=== PATIENT | female | born 1945 | race American Indian/Alaskan Native ===

== ENCOUNTER 2016-07-23 02:50 | Inpatient (IN) | payer MEDICARE ==
--- NOTE | 2016-07-23 03:53 | Emergency Department Report ---
ED General Adult HPI - General Chief complaint: Dyspnea/Respdistress Stated complaint: BLANK Time Seen by Provider: 07/23/16 03:48 Source: patient, EMS (ems notes not available at time of chart dictation), RN notes reviewed Mode of arrival: Stretcher Limitations: Physical Limitation - History of Present Illness Initial comments: Primary care Dr.: Dr. Sheridan This is a 70-year-old female. She is previously known to me. She presents to the ER complaining of feeling like she has pneumonia. She complains of cough, shortness of breath, chest tightness, wheezing, general malaise. This is being going on for the past 24 hours. Positive recent trip to [place]. There is no hematemesis. There is no leg pain. There is no leg swelling. No bright red blood per rectum. -: Gradual Location: chest Severity scale (0 -10): 4 Quality: aching Consistency: intermittent Improves with: rest Worsens with: movement Associated Symptoms: chest pain, cough, loss of appetite, malaise, shortness of breath, weakness. denies: confusion, fever/chills - Related Data Allergies Allergy/AdvReac Type Severity Reaction Status Date / Time azithromycin Allergy Swelling Verified 07/23/16 05:23 Penicillins Allergy Nausea Verified 07/23/16 05:23 lisinopril AdvReac Angioedema Verified 07/23/16 05:23 ED Review of Systems ROS: Stated complaint: BLANK Other details as noted in HPI Constitutional: malaise, weakness Eyes: denies: vision change Respiratory: cough, shortness of breath Cardiovascular: chest pain, dyspnea on exertion Gastrointestinal: denies: abdominal pain Genitourinary: as per HPI Musculoskeletal: arthralgia, myalgia Skin: denies: lesions Neurological: weakness ED Past Medical Hx - Past Medical History Previous Medical History?: Yes Hx Hypertension: Yes Hx Asthma: Yes Hx COPD: Yes - Surgical History Past Surgical History?: Yes Additional Surgical History: OVARIECTOMY. HYSTERECTOMY. LAMINECTOMY - Social History Smoking Status: Former Smoker Substance Use Type: None ED Physical Exam - General Limitations: Physical Limitation General appearance: alert, in distress - Head Head exam: Present: atraumatic, normocephalic - Eye Eye exam: Present: normal appearance, EOMI. Absent: nystagmus - ENT ENT exam: Present: normal exam, normal orophraynx, mucous membranes moist - Neck Neck exam: Present: normal inspection, full ROM. Absent: tenderness, meningismus - Respiratory Respiratory exam: Present: respiratory distress, wheezes, rhonchi - Cardiovascular Cardiovascular Exam: Present: regular rate, normal rhythm, normal heart sounds. Absent: bradycardia, tachycardia, irregular rhythm, systolic murmur, diastolic murmur, rubs, gallop - GI/Abdominal GI/Abdominal exam: Present: soft, normal bowel sounds. Absent: distended, tenderness, guarding, rebound, rigid, pulsatile mass - Extremities Exam Extremities exam: Present: normal inspection, full ROM, normal capillary refill. Absent: tenderness, pedal edema, joint swelling, calf tenderness - Back Exam Back exam: Present: normal inspection, full ROM. Absent: tenderness, CVA tenderness (R), CVA tenderness (L), muscle spasm, paraspinal tenderness, vertebral tenderness - Neurological Exam Neurological exam: Present: alert, oriented X3, normal gait, other (Extraocular movements intact. Tongue midline. No facial droop. Facial sensation intact to light touch in the V1, V2, V3 distribution bilaterally. 5 and 5 strength in 4 extremities.. Sensation is intact to light touch in 4 extremities.). Absent : motor sensory deficit - Psychiatric Psychiatric exam: Present: normal affect, normal mood - Skin Skin exam: Present: warm, dry, intact, normal color. Absent: rash ED Course Vital Signs 07/23/16 07/23/16 07/23/16 03:25 03:31 05:34 Temperature 98.4 F 98.4 F Pulse Rate 91 H 91 H Pulse Rate [ 95 H Anterior] Respiratory 21 21 Rate Respiratory 24 Rate [Anterior] Blood Pressure 152/84 Blood Pressure 152/84 [Right] O2 Sat by Pulse 90 90 Oximetry - Reevaluation(s) Reevaluation #1: 07/23/16 05:45 differential diagnosis: Bronchitis, asthma, reactive airway disease, acute coronary syndrome, congestive heart failure, pulmonary embolus 07/23/16 05Assessment and plan: 70-year-old female with cough, wheezing, shortness of breath, hypoxemic respiratory failure with a PaO2 of 63 on room air , chest x-ray appears to be clear, laboratory studies are unremarkable, most likely pneumonia versus bronchitis. Negative troponin, EKG abnormal, no prior for comparison, CT scan of the chest is pending. Case is presented to the Hospital physician, Dr. Nelson, who accepts the patient to the medical service. Inpatient team will follow-up on CT scan of the chest. :45 Reevaluation #2: 07/23/16 06:27 unable to obtain 20 g iv vq ordered cta cancelled ED Medical Decision Making - Lab Data Result diagrams: 07/23/16 03:48 07/23/16 03:48 Vital Signs 07/23/16 07/23/16 07/23/16 03:25 03:31 05:34 Temperature 98.4 F 98.4 F Pulse Rate 91 H 91 H Pulse Rate [ 95 H Anterior] Respiratory 21 21 Rate Respiratory 24 Rate [Anterior] Blood Pressure 152/84 Blood Pressure 152/84 [Right] O2 Sat by Pulse 90 90 Oximetry Labs 07/23/16 07/23/16 07/23/16 03:48 03:48 03:48 WBC 6.9 RBC 4.52 Hgb 13.9 Hct 42.1 MCV 93 MCH 31 MCHC 33 RDW 14.2 Plt Count 169 Lymph % (Auto) 28.6 [place] % (Auto) 6.2 Eos % (Auto) 4.4 H Baso % (Auto) 0.3 Lymph # 2.0 [place] # 0.4 Eos # 0.3 Baso # 0.0 Seg Neutrophils % 60.5 Seg Neutrophils # 4.1 PT INR D-Dimer POC ABG pH POC ABG pCO2 POC ABG pO2 POC ABG HCO3 POC ABG Total CO2 POC ABG O2 Sat POC ABG Base Excess FiO2 Sodium 141 Potassium 3.6 Chloride 100.2 Carbon Dioxide 29 Anion Gap 15 BUN 12 Creatinine 0.7 Estimated GFR > 60 BUN/Creatinine Ratio 17.14 Glucose 120 H Lactic Acid Calcium 9.3 Total Bilirubin 0.70 AST 21 ALT 15 Alkaline Phosphatase 112 Troponin T < 0.010 Total Protein 7.7 Albumin 4.1 Albumin/Globulin Ratio 1.1 07/23/16 07/23/16 07/23/16 03:59 03:59 04:26 WBC RBC Hgb Hct MCV MCH MCHC RDW Plt Count Lymph % (Auto) [place] % (Auto) Eos % (Auto) Baso % (Auto) Lymph # [place] # Eos # Baso # Seg Neutrophils % Seg Neutrophils # PT 12.2 INR 0.91 D-Dimer 396.07 H POC ABG pH POC ABG pCO2 POC ABG pO2 POC ABG HCO3 POC ABG Total CO2 POC ABG O2 Sat POC ABG Base Excess FiO2 Sodium Potassium Chloride Carbon Dioxide Anion Gap BUN Creatinine Estimated GFR BUN/Creatinine Ratio Glucose Lactic Acid 1.40 Calcium Total Bilirubin AST ALT Alkaline Phosphatase Troponin T Total Protein Albumin Albumin/Globulin Ratio 07/23/16 04:41 WBC RBC Hgb Hct MCV MCH MCHC RDW Plt Count Lymph % (Auto) [place] % (Auto) Eos % (Auto) Baso % (Auto) Lymph # [place] # Eos # Baso # Seg Neutrophils % Seg Neutrophils # PT INR D-Dimer POC ABG pH 7.415 POC ABG pCO2 44.0 POC ABG pO2 63 L POC ABG HCO3 28.2 POC ABG Total CO2 30 POC ABG O2 Sat 92 POC ABG Base Excess 4 FiO2 21 Sodium Potassium Chloride Carbon Dioxide Anion Gap BUN Creatinine Estimated GFR BUN/Creatinine Ratio Glucose Lactic Acid Calcium Total Bilirubin AST ALT Alkaline Phosphatase Troponin T Total Protein Albumin Albumin/Globulin Ratio - EKG Data -: EKG Interpreted by Me EKG shows normal: sinus rhythm - EKG Data When compared to previous EKG there are: previous EKG unavailable 07/23/16 05:46 Normal sinus, 75 bpm, borderline left axis deviation, right bundle branch block , abnormal EKG, not consistent with STEMI, no prior for comparison. - Radiology Data Radiology results: image reviewed interpreted by me: The aorta is uncoiled. Chest x-ray otherwise negative for acute disease. Critical care attestation.: If time is entered above; I have spent that time in minutes in the direct care of this critically ill patient, excluding procedure time. ED Disposition Clinical Impression: Respiratory failure Disposition: OP ADMITTED IP TO THIS HOSP Is pt being admited?: Yes Does the pt Need Aspirin: Yes Condition: Stable Referrals: PRIMARY CARE, [Primary Care Provider] - 3-5 Days
[2016-07-23 04:09] LABS: Basophils % (Auto) 0.3 % (0.0-1.8); Eosinophils % (Auto) 4.4 % (0.0-4.3); Hematocrit 42.1 % (30.3-42.9); Hemoglobin 13.9 gm/dl (10.1-14.3); Mean Corpuscular HGB Conc 33 % (30-34); Mean Corpuscular Hemoglobin 31 pg (28-32); Mean Corpuscular Volume 93 fl (79-97); Platelet Count 169 K/mm3 (140-440); Red Blood Count 4.52 M/mm3 (3.65-5.03); Red Cell Distribution Width 14.2 % (13.2-15.2); White Blood Count 6.9 K/mm3 (4.5-11.0)
[2016-07-23] MEDS ORDERED: ATROVENT IH ONE (04:18)
[2016-07-23] MEDS ORDERED: PROVENTIL IH ONE (04:18)
[2016-07-23] MEDS ORDERED: MAGNESIUM SULFATE 2GM/50ML 2 GM/50 ML BAG IV ONE (04:19)
[2016-07-23 04:26] LABS: INR 0.91 (0.87-1.13)
[2016-07-23 04:34] LABS: Alanine Aminotransferase 15 units/L (7-56); Albumin 4.1 g/dL (3.9-5); Albumin/Globulin Ratio 1.1 %; Alkaline Phosphatase 112 units/L (35-129); Anion Gap 15 mmol/L; BUN/Creatinine Ratio 17.14; Blood Urea Nitrogen 12 mg/dL (7-17); Calcium 9.3 mg/dL (8.4-10.2); Carbon Dioxide 29 mmol/L (22-30); Chloride 100.2 mmol/L (98-107); Glucose 120 mg/dL (65-100); Potassium 3.6 mmol/L (3.6-5.0); Sodium 141 mmol/L (137-145); Total Protein 7.7 g/dL (6.3-8.2)
[2016-07-23 04:50] LABS: ISTAT Base Excess 4; ISTAT HCO3 28.2; ISTAT PH 7.415 (7.35-7.45); ISTAT PO2 63 (80-105); ISTAT SO2 92; ISTAT TCO2 30
[2016-07-23] MEDS ORDERED: NACL ONE (05:17)
[2016-07-23] MEDS ORDERED: LEVAQUIN 750MG/150ML 750 MG/150 ML BAG IV ONE (05:45)
[2016-07-23] MEDS ORDERED: BABY ASPIRIN PO ONE (05:49)
[2016-07-23] MEDS ORDERED: LOVENOX SUB-Q ONE ×2 (06:47→10:00)
--- NOTE | 2016-07-23 07:38 | History and Physical Report ---
History of Present Illness Date of examination: 07/23/16 History of present illness: Patient is a 70-year-old female. She presents to the ER complaining of feeling like she has pneumonia. She complains of cough, shortness of breath, chest tightness, wheezing, general malaise. This is being going on for the past 24 hours. Positive recent trip to [place]. There is no hematemesis. There is no leg pain. There is no leg swelling. No bright red blood per rectum. Past History Past Medical History: COPD Medications and Allergies Allergies Allergy/AdvReac Type Severity Reaction Status Date / Time azithromycin Allergy Swelling Verified 07/23/16 05:23 Penicillins Allergy Nausea Verified 07/23/16 05:23 lisinopril AdvReac Angioedema Verified 07/23/16 05:23 Active Meds: Active Medications Enoxaparin Sodium (Lovenox) 70 mg SUB-Q ONCE.ED ONE Stop: 07/23/16 10:01 Review of Systems Cardiovascular: chest pain Respiratory: shortness of breath Exam - Constitutional Vitals: Temp Pulse Resp BP Pulse Ox 98.4 F 95 H 24 152/84 90 07/23/16 03:31 07/23/16 05:34 07/23/16 05:34 07/23/16 03:31 07/23/16 03:31 General appearance: Present: mild distress - EENT Eyes: Present: PERRL, EOM intact ENT: hearing intact, clear oral mucosa - Neck Neck: Present: supple, normal ROM - Respiratory Respiratory effort: normal Respiratory: bilateral: wheezing - Cardiovascular Rhythm: regular Heart Sounds: Present: S1 & S2 - Extremities Extremities: no ischemia, No edema - Abdominal General gastrointestinal: Present: soft, non-tender, non-distended, normal bowel sounds - Psychiatric Psychiatric: appropriate mood/affect, intact judgment & insight - Neurologic Neurologic: CNII-XII intact, moves all extremities Results - Labs CBC & Chem 7: 07/23/16 03:48 07/23/16 03:48 Labs: Laboratory Last Values WBC 6.9 K/mm3 (4.5-11.0) 07/23/16 03:48 RBC 4.52 M/mm3 (3.65-5.03) 07/23/16 03:48 Hgb 13.9 gm/dl (10.1-14.3) 07/23/16 03:48 Hct 42.1 % (30.3-42.9) 07/23/16 03:48 MCV 93 fl (79-97) 07/23/16 03:48 MCH 31 pg (28-32) 07/23/16 03:48 MCHC 33 % (30-34) 07/23/16 03:48 RDW 14.2 % (13.2-15.2) 07/23/16 03:48 Plt Count 169 K/mm3 (140-440) 07/23/16 03:48 Lymph % (Auto) 28.6 % (13.4-35.0) 07/23/16 03:48 [place] % (Auto) 6.2 % (0.0-7.3) 07/23/16 03:48 Eos % (Auto) 4.4 % (0.0-4.3) H 07/23/16 03:48 Baso % (Auto) 0.3 % (0.0-1.8) 07/23/16 03:48 Lymph # 2.0 K/mm3 (1.2-5.4) 07/23/16 03:48 [place] # 0.4 K/mm3 (0.0-0.8) 07/23/16 03:48 Eos # 0.3 K/mm3 (0.0-0.4) 07/23/16 03:48 Baso # 0.0 K/mm3 (0.0-0.1) 07/23/16 03:48 Seg Neutrophils % 60.5 % (40.0-70.0) 07/23/16 03:48 Seg Neutrophils # 4.1 K/mm3 (1.8-7.7) 07/23/16 03:48 PT 12.2 Sec. (12.2-14.9) 07/23/16 03:59 INR 0.91 (0.87-1.13) 07/23/16 03:59 D-Dimer 396.07 ng/mlDDU (0-234) H 07/23/16 04:26 POC ABG pH 7.415 (7.35-7.45) 07/23/16 04:41 POC ABG pCO2 44.0 (35-45) 07/23/16 04:41 POC ABG pO2 63 (80-105) L 07/23/16 04:41 POC ABG HCO3 28.2 07/23/16 04:41 POC ABG Total CO2 30 07/23/16 04:41 POC ABG O2 Sat 92 07/23/16 04:41 POC ABG Base Excess 4 07/23/16 04:41 FiO2 21 % 07/23/16 04:41 Sodium 141 mmol/L (137-145) 07/23/16 03:48 Potassium 3.6 mmol/L (3.6-5.0) 07/23/16 03:48 Chloride 100.2 mmol/L (98-107) 07/23/16 03:48 Carbon Dioxide 29 mmol/L (22-30) 07/23/16 03:48 Anion Gap 15 mmol/L 07/23/16 03:48 BUN 12 mg/dL (7-17) 07/23/16 03:48 Creatinine 0.7 mg/dL (0.7-1.2) 07/23/16 03:48 Estimated GFR > 60 ml/min 07/23/16 03:48 BUN/Creatinine Ratio 17.14 % 07/23/16 03:48 Glucose 120 mg/dL (65-100) H 07/23/16 03:48 Lactic Acid 1.40 mmol/L (0.7-2.0) 07/23/16 03:59 Calcium 9.3 mg/dL (8.4-10.2) 07/23/16 03:48 Total Bilirubin 0.70 mg/dL (0.1-1.2) 07/23/16 03:48 AST 21 units/L (5-40) 07/23/16 03:48 ALT 15 units/L (7-56) 07/23/16 03:48 Alkaline Phosphatase 112 units/L (35-129) 07/23/16 03:48 Troponin T < 0.010 ng/mL (0.00-0.029) 07/23/16 03:48 Total Protein 7.7 g/dL (6.3-8.2) 07/23/16 03:48 Albumin 4.1 g/dL (3.9-5) 07/23/16 03:48 Albumin/Globulin Ratio 1.1 % 07/23/16 03:48 Assessment and Plan - Patient Problems (1) Chest pain Current Visit: Yes Status: Acute Qualifiers: Chest pain type: C Ischemic chest pain type: I Plan to address problem: Admit to Tele, Cardiology consult, ASA, No beta-blockers secondary to COPD, 2D echo, Lexiscan (2) Elevated d-dimer Current Visit: Yes Status: Acute Plan to address problem: V/Q Scan to evaluate for PE (3) COPD (chronic obstructive pulmonary disease) Current Visit: Yes Status: Acute Qualifiers: COPD type: C Chronic bronchitis type: C Emphysema type: E Plan to address problem: Nebulizer treatments, O2, Pulmonary consult, IV steroids
[2016-07-23 08:08] LABS: Bilirubin,Urine NEG (Negative); Blood,Urine NEG (Negative); Ketones,Urine NEG (Negative); Leukocyte Esterase,Urine NEG (Negative); Mucus,Urine FEW /HPF; Nitrite,Urine NEG (Negative); Protein,Urine <15 mg/dL mg/dL (Negative); Urobilinogen,Urine < 2.0 mg/dL (<2.0)
--- NOTE | 2016-07-23 09:07 | XRay Report ---
ROUTINE CHEST, TWO VIEWS: HISTORY: Dyspnea. The trachea, heart, lung kim and bony thorax are unremarkable. The aorta is mildly ectatic but well-defined. IMPRESSION: Unremarkable chest x-ray.
[2016-07-23] MEDS ORDERED: PNEUMOVAX 23 IM ONE (09:32)
[2016-07-23] MEDS ORDERED: ECOTRIN PO ONE (10:00)
[2016-07-23] MEDS: PROVENTIL IH SCH ×3 (10:36→20:37)
--- NOTE | 2016-07-23 10:53 | Consultation ---
History of Present Illness Consult date: 07/23/16 Consult reason: shortness of breath History of present illness: Patient is a 70-year-old female. She presented to the ER complaining of feeling like she has pneumonia. Patient states she has had a cough, shortness of breath, chest tightness, wheezing, general malaise. Chest tightness is substernal without radiation. Chest pain is present off and on for the last several years. Patient denies orthopnea, pnd, palpitations, dizziness or sycnope. Past History Past Medical History: COPD, hypertension, hypothyroidism Past Surgical History: Other (OVARIECTOMY. HYSTERECTOMY. LAMINECTOMY) Social history: smoking, other (Patient is a former smoker). denies: alcohol abuse, IV drug use Medications and Allergies Allergies Allergy/AdvReac Type Severity Reaction Status Date / Time azithromycin Allergy Swelling Verified 07/23/16 05:23 Penicillins Allergy Nausea Verified 07/23/16 05:23 lisinopril AdvReac Angioedema Verified 07/23/16 05:23 Home Medications Medication Instructions Recorded Confirmed Last Taken Type ALBUTEROL Inhaler [Proair] 2 puff IH QID PRN 07/23/16 07/23/16 Unknown History Fluticasone [Flonase] 1 spray NS QDAY 07/23/16 07/23/16 Unknown History Hydrochlorothiazide [HCTZ] 25 mg PO QDAY 07/23/16 07/23/16 Unknown History Levothyroxine [Synthroid] 100 mcg PO QAM 07/23/16 07/23/16 Unknown History Potassium Chloride [Klor-Con] 20 meq PO DAILY 07/23/16 07/23/16 Unknown History guaiFENesin [Mucinex] 600 mg PO BID 07/23/16 07/23/16 Unknown History Active Meds: Active Medications Albuterol (Proventil) 2.5 mg IH Q6HRT ACACIA Last Admin: 07/23/16 10:36 Dose: Not Given Levofloxacin/Dextrose (Levaquin 750mg/150ml) 750 mg in 150 mls @ 100 mls/hr IV Q24HR ACACIA PRN Reason: Protocol Sodium Chloride (Nacl 0.9% 1000 Ml) 1,000 mls @ 100 mls/hr IV DIRECT ACACIA Ipratropium [place] (Atrovent) 0.5 mg IH Q6HRT ACACIA Methylprednisolone Sodium Succinate (Solu-Medrol) 80 mg IV Q8HR ACACIA Review of Systems All systems: negative (those complaints mentioned in HPI) Physical Examination Vital Signs Pulse Ox 95 07/23/16 03:09 General appearance: no acute distress HEENT: Positive: EOMI Neck: Positive: neck supple Cardiac: Positive: Reg Rate and Rhythm, S1/S2 Lungs: Positive: Other (Course breath sounds bilaterally) Neuro: Positive: Grossly Intact Abdomen: Positive: Soft, Active Bowel Sounds Extremities: Present: normal Results 07/23/16 03:48 07/23/16 03:48 Assessment and Plan (1) Chest pain - admitted to telemetry. Continue ASA. Start statin. No BB due to history of COPD. Continue to follow troponins. If troponins remain negative the plan for lexiscan in AM. Echo pending (2) Elevated d-dimer - planned for V/Q Scan to evaluate for PE (3) COPD (chronic obstructive pulmonary disease) - Nebulizer treatments, O2, Pulmonary consult, IV steroids. Management per primary (4) History of smoking
--- NOTE | 2016-07-23 10:59 | Nuclear Medicine Report ---
LUNG SCAN, VENTILATION AND PERFUSION: History: Chest pain, shortness of breath. Technique: 5mci of Tc99m MAA was infused for the perfusion images. 15mci XE 133 gas was inhaled for the ventilatory images. Correlation is made with a chest x-ray dated 07/23/16. Findings: Inhalation of Xenon gas demonstrates a normal distribution of the activity throughout both lungs. The wash out phases show mild retention of the radiotracer bilaterally suggesting COPD. After injection of Technetium 99m macroaggregated albumin gamma camera imaging of the lungs in multiple projections demonstrates normal pulmonary contours with a homogeneous distribution of activity. No focal areas of perfusion deficiency are identified. IMPRESSION: Low probability for pulmonary embolus. Findings suggestive of mild COPD.
--- NOTE | 2016-07-23 11:18 | Admit Criteria Form ---
Admission Criteria Documentation: CARDIOLOGY GRG Clinical Indications for Admission to Inpatient Care ( Place 'X' for any and all applicable criteria): Hospital admission is needed for appropriate care of the patient because of ANY ONE of the following (1): [ ] I. Hemodynamic instability as indicated by ALL of the following (1)(2)(3) (4)(5) [ ]a) Vital signs or other findings not as expected for chronic patient condition or baseline [ ]b) Instability indicated by ANY ONE of the following: [ ]i) Hypotension [ ]ii) Symptomatic Tachycardia unresponsive to treatment ( e.g., analgesia, fluids, sedation as indicated) [ ]iii) Inadequate perfusion indicated by ANY ONE of the following: [ ] 1) Lactic acidosis (> 2 mmol/L) [ ] 2) New abnormal capillary refill (> 3 seconds) [ ] 3) Reduced urine output [ ] 4) New altered mental status [ ]iv) Orthostatic vital sign changes unresponsive to treatment (e.g., fluids) [ ]v) IV inotropic or vasopressor medication required to maintain adequate blood pressure or perfusion [ ] II. Severe heart failure as indicated by ANY ONE of the following(17)(18) [ ]a) Respiratory distress [ ]b) Hypotension [ ]c) Anasarca (refractory to outpatient therapy) [ ]d) Cardiac arrhythmias of immediate concern [ ]e) Myocardial ischemia [ ] III. Cardiac arrhythmias or findings of immediate concern indicated by ANY ONE of the following (19)(20): [ ] a) Heart rhythms that are inherently dangerous or unstable indicated by ANY ONE of the following (21)(22)(23): [ ] i) Resuscitated ventricular fibrillation or cardiac arrest [ ] ii) Ventricular escape rhythm [ ] iii) Sustained ventricular tachycardia (30 seconds or more of ventricular rhythm at greater than 100 beats per minute) [ ] iv) Nonsustained ventricular tachycardia and ANY ONE of the following: [ ] 1) Suspected cardiac ischemia as cause or consequence of ventricular tachycardia [ ] 2) In setting of acute myocarditis [ ] b) Unstable cardiac conduction defects indicated by ANY ONE of the following(23)(24)(25) [ ] i) Type II second-degree atrioventricular block [ ]ii) Third-degree atrioventricular block [ ]iii) New-onset left bundle branch block with suspected myocardial ischemia [ ]c) Any heart rhythm and ANY ONE of the following (21)(22)(26)(27) (28) [ ] i) Continuous long-term ECG monitoring needed (e.g., initiation of drug requiring monitoring for more than 24 hours) [ ] ii) Patient has automatic implanted cardioverter defibrillator that is repeatedly firing, malfunctioning, or in need of immediate adjustment of settings beyond the scope of ambulatory or observation care [ ]d) Heart rhythms of concern due to ANY ONE of the following: [ ] i) Hypotension [ ] ii) Respiratory distress [ ] iii) Association with other significant symptoms (e.g., bradycardia with syncope or ongoing dizziness, supraventricular tachycardia with chest pain (14)(15)(17) [ ] IV. Monitoring for cardiac contusion beyond the scope of observation care needed [A](30)(31)(32) [ ] V. Surgical or device complication (e.g., valve replacement complication , pacemaker dysfunction) (35)(41)(44)(45)(46) [ ] . Inpatient palliative care needed. [B](49) Also use Inpatient Palliative Care Criteria [ ] VII. Nonbacterial thrombotic (marantic) endocarditis (36)(43)(47)(48) [X ] VIII. Cardiology condition, symptom, or finding for which emergency and observation care has failed or are not considered appropriate. [ ] IX. Acute valvular disease requiring inpatient as indicated by ANY ONE of the following (41) [ ]a) Acute valvular regurgitation (42) [ ]b) Noninfectious valvulitis (43) [ ]c) Obstructive valve thrombosis [ ]d) Paravalvular leak [ ]e) Other significant valvular disorder remaining after emergency or observation level of care (as appropriate) [ ]X. Pericardial disease requiring inpatient treatment as indicated by ANY ONE of the following (33)(34)(35)(36)(37) [ ]a) Suspected tamponade (38)(39)(40) [ ]b) Hemopericardium [ ]c) Other significant pericardial disorder remaining after emergency or observation level of care (as appropriate) [ ] XI. Cardiac ischemia beyond scope of emergency and observation care. [ ] XII. Hypertension requiring inpatient treatment as indicated by ANY ONE of the following (6)(7)(8) [ ]a) SBP greater than 220 mm Hg or DBP greater than 120 mmHg despite treatment [ ]b) SBP greater than 140 mm Hg or DBP greater than 100 mm Hg with evidence of acute end organ damage as indicated by ANY ONE of the following [ ] i) Altered mental status [ ] ii) Acute renal failure as indicated by new onset of ANY ONE of the following (9)(10)(11)(12)(13) [ ]1) 3-fold rise in serum creatinine from baseline [ ]2) Serum creatinine greater than 4 mg/dL ( 354 micromoles/L) with acute rise greater than 0.5 mg/dL (44.2 micromoles/L) [ ]3) Reduction of more than 75% in estimated glomerular filtration rate from baseline [ ]4) Estimated glomerular filtration rate less than 35 mL/min/1.73m2 (0.59 mL/sec/1.73m2) in child up to 18 years of age [ ]5) Cessation of urine output indicated by ALL of the following [ ]A. Adequate volume status [ ]B. Inadequate urine output as indicated by ANY ONE of the following [ ]a. Urine output less than 0.3 mL/kg/hr for 24 hours [ ]b. Anuria (urine output less than 0.1 mL/kg/hr) for 12 hours [ ] iii) Aortic dissection [ ] iv) Myocardial Ischemia [ ] v) Left ventricular heart failure [ ]vi) Retinal Hemorrhage [ ]vii) Other significant finding [ ]c) Hypertension in child requiring inpatient treatment as indicated by ALL of the following(14)(15)(16) [ ] i) Outpatient treatment not effective, not available, or not appropriate [ ]ii) SBP or DBP greater than 95th percentile for age [ ]iii) Evidence of acute end organ damage as indicated by ANY ONE of the following [ ]1) Altered mental status [ ]2) Acute renal failure as indicated by new onset of ANY ONE of the following(9)(10)(11)(12)(13) [ ]A. 3-fold rise in serum creatinine from baseline [ ]B. Serum creatinine greater than 4 mg/dL (354 micromoles/L) with acute rise greater than 0.5 mg/dL (44.2 micromoles/L) [ ]C. Reduction of more than 75% in estimated glomerular filtration rate from baseline [ ]D. Estimated glomerular filtration rate less than 35 mL/min/1.73m2 (0.59 mL/sec/1.73m2) in child up to 18 years of age [ ]E. Cessation of urine output indicated by ALL of the following [ ]a. Adequate volume status [ ]b. Inadequate urine output as indicated by ANY ONE of the following [ ]i) Urine output less than 0.3 mL/kg/hr for 24 hours [ ]ii) Anuria ( urine output less than 0.1 mL/kg/hr) for 12 hours [ ]3) Severe headache [ ]4) Visual disturbance [ ]5) Retinal hemorrhage [ ]6) Other significant finding [ ]XIII. Complications of transplanted heart indicated by ANY ONE of the following(61): [ ]a) Acute graft rejection requiring inpatient management (eg, intravenous immunosuppression)(62)(63) [ ]b) Acute graft heart failure indicated by ANY ONE of the following(64): [ ]i) Hemodynamic instability [ ]ii) Cardiac arrhythmias of immediate concern [ ]iii) Pulmonary edema that is very severe (eg, mechanical ventilation needed, imminent or likely, need for 100% oxygen to keep oxygen saturation above 90%) [ ]iv) Pulmonary edema that is persistent as indicated by ALL of the following: [ ]1) New need for oxygen therapy to keep oxygen saturation above 90% (or increased FiO2 need from baseline) [ ]2) Has not improved sufficiently with emergency department or observation care IV diuretics or other heart failure treatments[E] [ ]v) Altered mental status that is severe or persistent [ ]vi) Increased creatinine (new on laboratory test) with reduction of more than 50% in estimated glomerular filtration rate from baseline [ ]vii) Progressively (ongoing) rising creatinine (known from past laboratory test) with reduction of more than 25% in estimated glomerular filtration rate from baseline [ ]viii) Acute renal failure [ ]ix) Acute peripheral ischemia (eg, examination shows pulseless, cool, mottled, or cyanotic extremity) [ ]x) Pulmonary artery catheter monitoring needed [ ]xi) Other sign or symptom of heart failure requiring inpatient treatment (ie, too severe or not responsive to outpatient and observation care treatment) [ ]c) Infection requiring inpatient management (eg, Hemodynamic instability, need for intravenous antimicrobial treatment)(66)(67)(68)(69)(70) [ ]d) Cardiac allograft vasculopathy requiring inpatient management ( eg evidence of cardiac ischemia)(71) [ ]e) Other complication of transplanted heart (eg, stroke, severe pulmonary hypertension, severe valvular dysfunction) requiring inpatient management(72) The original [facility] content created by [facility] [employer] has been revised. The portions of the content which have been revised are identified through the use of italic text or in bold, and [facility] has neither reviewed nor approved the modified material. All other unmodified content is copyright [facility] [employer]. Please see references footnoted in the original [facility] [employer] edition 2016 Admission Criteria Met: Yes
--- NOTE | 2016-07-23 14:19 | Consultation ---
History of Present Illness Consult date: 07/23/16 Requesting physician: MARIA D INGRAM Reason for consult: dyspnea History of present illness: 70 y/o FEMALE, admitted from ED with complaints of feeling as if she had pneumonia. Very difficult to obtain history from patient. Per her, shortness of breath has been present for 25 years. She smoked for 47 years. She states that the symptoms that brought her to the ED started on . She has cough that is not productive, maybe some shaking chills but no fever. 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 Per the patient, the individual is always "filled with cold". She is currently on room air and appears comfortable but states that she becomes winded with any movement/exertion. Past History Past Medical History: COPD, hypertension, hypothyroidism Past Surgical History: Other (OVARIECTOMY. HYSTERECTOMY. LAMINECTOMY) Social history: smoking, other (Patient is a former smoker). denies: alcohol abuse, IV drug use Medications and Allergies Allergies Allergy/AdvReac Type Severity Reaction Status Date / Time azithromycin Allergy Swelling Verified 07/23/16 05:23 Penicillins Allergy Nausea Verified 07/23/16 05:23 lisinopril AdvReac Angioedema Verified 07/23/16 05:23 Home Medications Medication Instructions Recorded Confirmed Last Taken Type ALBUTEROL Inhaler [Proair] 2 puff IH QID PRN 07/23/16 07/23/16 Unknown History Fluticasone [Flonase] 1 spray NS QDAY 07/23/16 07/23/16 Unknown History Hydrochlorothiazide [HCTZ] 25 mg PO QDAY 07/23/16 07/23/16 Unknown History Levothyroxine [Synthroid] 100 mcg PO QAM 07/23/16 07/23/16 Unknown History Potassium Chloride [Klor-Con] 20 meq PO DAILY 07/23/16 07/23/16 Unknown History guaiFENesin [Mucinex] 600 mg PO BID 07/23/16 07/23/16 Unknown History Active Meds: Active Medications Albuterol (Proventil) 2.5 mg IH Q6HRT [facility] Last Admin: 07/23/16 10:36 Dose: Not Given Atorvastatin Calcium (Lipitor) 40 mg PO QHS [facility] Levofloxacin/Dextrose (Levaquin 750mg/150ml) 750 mg in 150 mls @ 100 mls/hr IV Q24HR [facility] PRN Reason: Protocol Sodium Chloride (Nacl 0.9% 1000 Ml) 1,000 mls @ 100 mls/hr IV DIRECT [facility] Ipratropium [place] (Atrovent) 0.5 mg IH Q6HRT [facility] Methylprednisolone Sodium Succinate (Solu-Medrol) 80 mg IV Q8HR [facility] Review of Systems All systems: negative Physical Examination Vital signs: Vital Signs Pulse Ox 95 07/23/16 03:09 General appearance: no acute distress, alert ENT: oropharynx moist Neck: supple Ascultation: Bilateral: diminished breath sounds Percussion: Bilateral: not dull Tactile fremitus: Bilateral: normal Cardiovascular: regular rate and rhythm Gastrointestinal: normoactive bowel sounds Integumentary: normal Extremities: no cyanosis, no edema, pink and warm, pulses normal Musculoskeletal: no deformities other (very flat affect) Results - Laboratory Findings CBC and BMP: 07/23/16 03:48 07/23/16 03:48 ABG POC ABG pH 7.415 (7.35-7.45) 07/23/16 04:41 POC ABG pCO2 44.0 (35-45) 07/23/16 04:41 POC ABG pO2 63 (80-105) L 07/23/16 04:41 POC ABG HCO3 28.2 07/23/16 04:41 POC ABG Total CO2 30 07/23/16 04:41 POC ABG O2 Sat 92 07/23/16 04:41 PT/INR, D-dimer PT 12.2 Sec. (12.2-14.9) 07/23/16 03:59 INR 0.91 (0.87-1.13) 07/23/16 03:59 D-Dimer 396.07 ng/mlDDU (0-234) H 07/23/16 04:26 - Diagnostic Findings Chest x-ray: image reviewed (clear) Assessment and Plan 70 y/o female, admitted with presumptive COPD exacerbation. 1. Would switch to PO prednisone 60 daily. 2. Will need taper over 2 weeks time. 60x3, 40x3, 20x3 then 10x3 then stop. 3. Needs to follow up with [facility] as an outpatient for full PFT, 6 minute walk and repeat CXR 2 view 4. Needs PRN rescue inhaler 5. Would walk patient in am to see if she needs O2 prior to discharge and would discharge patient tomorrow if clinically she remains stable.
[2016-07-23] MEDS: ATROVENT IH SCH ×2 (17:44→20:37)
[2016-07-23] MEDS: NACL 0.9% 1000 ML 1,000 ML IV SCH (18:18)
[2016-07-23] MEDS ORDERED: PROVENTIL IH PRN (20:32)
[2016-07-24 08:22] LABS: Basophils % (Auto) 0.1 % (0.0-1.8); Hematocrit 37.6 % (30.3-42.9); Hemoglobin 12.6 gm/dl (10.1-14.3); Mean Corpuscular HGB Conc 33 % (30-34); Mean Corpuscular Hemoglobin 31 pg (28-32); Mean Corpuscular Volume 93 fl (79-97); Platelet Count 168 K/mm3 (140-440); Red Blood Count 4.03 M/mm3 (3.65-5.03); Red Cell Distribution Width 14.2 % (13.2-15.2); White Blood Count 13.5 K/mm3 (4.5-11.0)
--- NOTE | 2016-07-24 08:23 | Progress Note ---
Assessment and Plan (1) Chest pain - admitted to telemetry. Continue ASA. Start statin. No BB due to history of COPD. Continue to follow troponins. If troponins remain negative the plan for lexiscan in AM - patient was unable to have lexiscan due to V/Q scan yesterday. Echo pending (2) Elevated d-dimer - V/Q scan low probability for PE (3) COPD (chronic obstructive pulmonary disease) - Nebulizer treatments, O2, Pulmonary consult, IV steroids. Management per primary (4) History of smoking Subjective Date of service: 07/24/16 Interval history: No acute events. Resting comfortably. No chest pain or SOB. Objective Vital Signs Temp Pulse Pulse Pulse Resp Resp BP 07/24/16 06:00 98 F 77 21 170/86 07/24/16 01:00 64 07/24/16 00:00 97.7 F 71 20 131/68 07/23/16 22:00 07/23/16 20:00 97.6 F 83 23 141/77 07/23/16 18:00 77 17 07/23/16 17:52 93 H 18 07/23/16 17:18 69 07/23/16 16:00 97.9 F 84 18 118/56 07/23/16 12:00 97.7 F 88 18 112/54 07/23/16 10:00 82 22 Pulse Ox 07/24/16 06:00 90 07/24/16 01:00 07/24/16 00:00 92 07/23/16 22:00 92 07/23/16 20:00 94 07/23/16 18:00 07/23/16 17:52 07/23/16 17:18 07/23/16 16:00 99 07/23/16 12:00 93 07/23/16 10:00 97 - Physical Examination HEENT: Positive: EOMI Neck: Positive: neck supple Neuro: Positive: Grossly Intact Abdomen: Positive: Soft, Active Bowel Sounds Extremities: Present: normal
[2016-07-24 08:42] LABS: Alanine Aminotransferase 14 units/L (7-56); Albumin 3.6 g/dL (3.9-5); Albumin/Globulin Ratio 1.1 %; Alkaline Phosphatase 93 units/L (35-129); Blood Urea Nitrogen 14 mg/dL (7-17); Calcium 8.8 mg/dL (8.4-10.2); Carbon Dioxide 22 mmol/L (22-30); Chloride 105.3 mmol/L (98-107); Glucose 156 mg/dL (65-100); Potassium 3.6 mmol/L (3.6-5.0); Sodium 144 mmol/L (137-145); Total Protein 6.9 g/dL (6.3-8.2)
[2016-07-24 08:47] LABS: Anion Gap 20 mmol/L
[2016-07-24] MEDS: DUONEB 0.5 MG-3 MG/3 ML SOLN IH SCH ×3 (09:22→19:51)
[2016-07-24] MEDS ORDERED: ULTRAM PO PRN (10:12)
--- NOTE | 2016-07-24 10:40 | Progress Note ---
Assessment and Plan Assessment and plan: COPD exacerbation. On solu-medrol, Duoneb, supplemental Oxygen Acute respiratory failure due to COPD exacerbation Hypertension. Continue Norvasc. DVT prophylaxis with Lovenox. Full code status History Interval history: shortness of breath Hospitalist Physical - Physical exam Narrative exam: Gen appearance: Not in acute distress, HEENT: Normocephalic, atraumatic Neck:supple, no JVD Lungs : Bilateral rhonchi, wheezing Heart :S1-S2 regular, no murmurs, rubs or gallop Abdomen: soft, non tender, non-distended,normal bowel sounds Extremities:no edema no clubbing or cyanosis, Neuro: Awake, alert, oriented 3, no focal neurological signs - Constitutional Vitals: Temp Pulse Resp BP Pulse Ox 98.4 F 97 H 16 163/78 98 07/24/16 10:00 07/24/16 09:38 07/24/16 10:00 07/24/16 10:00 07/24/16 10:00 General appearance: Present: no acute distress Results - Labs CBC & Chem 7: 07/24/16 07:37 07/24/16 07:37 Labs: Laboratory Last Values WBC 13.5 K/mm3 (4.5-11.0) H 07/24/16 07:37 RBC 4.03 M/mm3 (3.65-5.03) 07/24/16 07:37 Hgb 12.6 gm/dl (10.1-14.3) 07/24/16 07:37 Hct 37.6 % (30.3-42.9) 07/24/16 07:37 MCV 93 fl (79-97) 07/24/16 07:37 MCH 31 pg (28-32) 07/24/16 07:37 MCHC 33 % (30-34) 07/24/16 07:37 RDW 14.2 % (13.2-15.2) 07/24/16 07:37 Plt Count 168 K/mm3 (140-440) 07/24/16 07:37 Lymph % (Auto) 9.7 % (13.4-35.0) L 07/24/16 07:37 [place] % (Auto) 2.6 % (0.0-7.3) 07/24/16 07:37 Eos % (Auto) 0.0 % (0.0-4.3) 07/24/16 07:37 Baso % (Auto) 0.1 % (0.0-1.8) 07/24/16 07:37 Lymph # 1.3 K/mm3 (1.2-5.4) 07/24/16 07:37 Sutter # 0.3 K/mm3 (0.0-0.8) 07/24/16 07:37 Eos # 0.0 K/mm3 (0.0-0.4) 07/24/16 07:37 Baso # 0.0 K/mm3 (0.0-0.1) 07/24/16 07:37 Seg Neutrophils % 87.6 % (40.0-70.0) H 07/24/16 07:37 Seg Neutrophils # 11.8 K/mm3 (1.8-7.7) H 07/24/16 07:37 PT 12.2 Sec. (12.2-14.9) 07/23/16 03:59 INR 0.91 (0.87-1.13) 07/23/16 03:59 D-Dimer 396.07 ng/mlDDU (0-234) H 07/23/16 04:26 POC ABG pH 7.415 (7.35-7.45) 07/23/16 04:41 POC ABG pCO2 44.0 (35-45) 07/23/16 04:41 POC ABG pO2 63 (80-105) L 07/23/16 04:41 POC ABG HCO3 28.2 07/23/16 04:41 POC ABG Total CO2 30 07/23/16 04:41 POC ABG O2 Sat 92 07/23/16 04:41 POC ABG Base Excess 4 07/23/16 04:41 FiO2 21 % 07/23/16 04:41 Sodium 144 mmol/L (137-145) 07/24/16 07:37 Potassium 3.6 mmol/L (3.6-5.0) 07/24/16 07:37 Chloride 105.3 mmol/L (98-107) 07/24/16 07:37 Carbon Dioxide 22 mmol/L (22-30) D 07/24/16 07:37 Anion Gap 20 mmol/L 07/24/16 07:37 BUN 14 mg/dL (7-17) 07/24/16 07:37 Creatinine 0.7 mg/dL (0.7-1.2) 07/24/16 07:37 Estimated GFR > 60 ml/min 07/24/16 07:37 BUN/Creatinine Ratio 20.00 % 07/24/16 07:37 Glucose 156 mg/dL (65-100) H 07/24/16 07:37 Lactic Acid 1.40 mmol/L (0.7-2.0) 07/23/16 03:59 Calcium 8.8 mg/dL (8.4-10.2) 07/24/16 07:37 Total Bilirubin 0.50 mg/dL (0.1-1.2) 07/24/16 07:37 AST 20 units/L (5-40) 07/24/16 07:37 ALT 14 units/L (7-56) 07/24/16 07:37 Alkaline Phosphatase 93 units/L (35-129) 07/24/16 07:37 Troponin T < 0.010 ng/mL (0.00-0.029) 07/23/16 03:48 Total Protein 6.9 g/dL (6.3-8.2) 07/24/16 07:37 Albumin 3.6 g/dL (3.9-5) L 07/24/16 07:37 Albumin/Globulin Ratio 1.1 % 07/24/16 07:37 Urine Color Yellow (Yellow) 07/23/16 06:57 Urine Turbidity Clear (Clear) 07/23/16 06:57 Urine pH 5.0 (5.0-7.0) 07/23/16 06:57 Ur Specific [place] 1.021 (1.003-1.030) 07/23/16 06:57 Urine Protein <15 mg/dl mg/dL (Negative) 07/23/16 06:57 Urine Glucose (UA) Neg mg/dL (Negative) 07/23/16 06:57 Urine Ketones Neg mg/dL (Negative) 07/23/16 06:57 Urine Blood Neg (Negative) 07/23/16 06:57 Urine Nitrite Neg (Negative) 07/23/16 06:57 Urine Bilirubin Neg (Negative) 07/23/16 06:57 Urine Urobilinogen < 2.0 mg/dL (<2.0) 07/23/16 06:57 Ur Leukocyte Esterase Neg (Negative) 07/23/16 06:57 Urine WBC (Auto) 1.0 /HPF (0.0-6.0) 07/23/16 06:57 Urine RBC (Auto) 4.0 /HPF (0.0-6.0) 07/23/16 06:57 U Epithel Cells (Auto) 1.0 /HPF (0-13.0) 07/23/16 06:57 Urine Mucus Few /HPF 07/23/16 06:57
[2016-07-24] MEDS: NORVASC PO SCH (10:55)
[2016-07-24] MEDS: LEVAQUIN 750MG/150ML 750 MG/150 ML BAG IV SCH (10:56)
--- NOTE | 2016-07-24 13:34 | Progress Note ---
Assessment and Plan 70 y/o female, admitted with presumptive COPD exacerbation. 1. Would switch to PO prednisone 60 daily. Same rec from yesterday. 2. Will need taper over 2 weeks time. 60x3, 40x3, 20x3 then 10x3 then stop. 3. Needs to follow up with [facility] as an outpatient for full PFT, 6 minute walk and repeat CXR 2 view 4. Needs PRN rescue inhaler 5. Please walk patient to assess need for oxygen prior to discharge. From a pulmonary standpoint she is ready. Awaiting joseph. Will sign off at this time. Call if questions. Subjective Date of service: 07/24/16 Interval history: No acute events. Did not have lexiscan this am. Remains on room air. Objective Vital Signs - 12hr 07/24/16 07/24/16 07/24/16 06:00 09:18 09:19 Temperature 98 F Pulse Rate 85 Pulse Rate [ 70 Anterior Bilateral Throughout] Pulse Rate [ 77 Brachial] Respiratory 21 Rate Respiratory 20 Rate [Anterior Bilateral Throughout] Blood Pressure 170/86 [Left Arm] Blood Pressure [Right Radial Artery] O2 Sat by Pulse 90 95 Oximetry 07/24/16 07/24/16 09:38 10:00 Temperature 98.4 F Pulse Rate Pulse Rate [ 97 H Anterior Bilateral Throughout] Pulse Rate [ Brachial] Respiratory 16 Rate Respiratory 20 Rate [Anterior Bilateral Throughout] Blood Pressure [Left Arm] Blood Pressure 163/78 [Right Radial Artery] O2 Sat by Pulse 98 Oximetry Constitutional: no acute distress, alert ENT: oropharynx moist Neck: supple Ascultation: Bilateral: diminished breath sounds Percussion: Bilateral: not dull Tactile fremitus: Bilateral: normal Cardiovascular: regular rate and rhythm Gastrointestinal: normoactive bowel sounds Integumentary: normal Extremities: no cyanosis, no edema, pink and warm, pulses normal Psychiatric: other (very flat affect) CBC and BMP: 07/24/16 07:37 07/24/16 07:37 ABG, PT/INR, D-dimer: ABG POC ABG pH 7.415 (7.35-7.45) 07/23/16 04:41 POC ABG pCO2 44.0 (35-45) 07/23/16 04:41 POC ABG pO2 63 (80-105) L 07/23/16 04:41 POC ABG HCO3 28.2 07/23/16 04:41 POC ABG Total CO2 30 07/23/16 04:41 POC ABG O2 Sat 92 07/23/16 04:41 PT/INR, D-dimer PT 12.2 Sec. (12.2-14.9) 07/23/16 03:59 INR 0.91 (0.87-1.13) 07/23/16 03:59 D-Dimer 396.07 ng/mlDDU (0-234) H 07/23/16 04:26 Abnormal lab findings: Abnormal Labs 07/24/16 07/24/16 07:37 07:37 WBC 13.5 H Lymph % (Auto) 9.7 L Seg Neutrophils % 87.6 H Seg Neutrophils # 11.8 H Glucose 156 H Albumin 3.6 L
[2016-07-24] MEDS: NACL 0.9% 1000 ML 1,000 ML IV SCH (14:29)
[2016-07-24] MEDS: NORCO 5/325 PO PRN (15:53)
[2016-07-25] MEDS: NACL 0.9% 1000 ML 1,000 ML IV SCH (06:40)
[2016-07-25] MEDS: DUONEB 0.5 MG-3 MG/3 ML SOLN IH SCH ×3 (08:17→19:27)
[2016-07-25] MEDS ORDERED: LEXISCAN IV ONE ×2 (08:46→09:30)
[2016-07-25] MEDS: LEVAQUIN 750MG/150ML 750 MG/150 ML BAG IV SCH (13:00)
[2016-07-25] MEDS ORDERED: PROTONIX PO SCH (13:00)
[2016-07-25] MEDS: NORVASC PO SCH (13:00)
--- NOTE | 2016-07-25 17:33 | Progress Note ---
Assessment and Plan - Patient Problems (1) COPD (chronic obstructive pulmonary disease) Current Visit: Yes Status: Acute Qualifiers: COPD type: C Chronic bronchitis type: C Emphysema type: E Plan to address problem: Patient is comfortable, no new cardiac complaints. She presented with symptoms of shortness of breath and wheezing, has a history of COPD and prior heavy tobacco use. There was no chest pain, no palpitations and no lower extremity edema. Today, the patient was ordered for a Persantin thallium stress test, results of which are normal. Subjective Date of service: 07/25/16 Interval history: Patient is comfortable, no new cardiac complaints. She presented with symptoms of shortness of breath and wheezing, has a history of COPD and prior heavy tobacco use. There was no chest pain, no palpitations and no lower extremity edema. Today, the patient was ordered for a Persantin thallium stress test, results of which are normal. Objective Vital Signs Temp Pulse Pulse Pulse Pulse Resp Resp 07/25/16 14:30 92 H 20 07/25/16 14:16 72 20 07/25/16 14:13 81 07/25/16 12:45 97.8 F 82 22 07/25/16 11:09 76 07/25/16 11:08 77 07/25/16 11:07 80 07/25/16 11:06 92 H 07/25/16 11:05 79 07/25/16 10:00 24 07/25/16 09:00 76 07/25/16 08:52 65 07/25/16 04:40 97.9 F 70 18 07/25/16 00:10 99.0 F 80 20 07/24/16 22:00 07/24/16 21:00 79 07/24/16 20:05 98.0 F 104 H 18 07/24/16 20:02 83 19 07/24/16 19:51 80 19 07/24/16 18:39 81 BP BP BP Pulse Ox 07/25/16 14:30 07/25/16 14:16 07/25/16 14:13 07/25/16 12:45 156/95 94 07/25/16 11:09 145/71 07/25/16 11:08 160/71 07/25/16 11:07 153/77 07/25/16 11:06 152/76 07/25/16 11:05 167/78 07/25/16 10:00 95 07/25/16 09:00 07/25/16 08:52 168/93 07/25/16 04:40 142/71 95 07/25/16 00:10 126/63 94 07/24/16 22:00 100 07/24/16 21:00 07/24/16 20:05 137/74 93 07/24/16 20:02 07/24/16 19:51 07/24/16 18:39 130/60 - Physical Examination General: No Apparent Distress HEENT: Positive: EOMI Neck: Positive: neck supple Cardiac: Positive: Reg Rate and Rhythm Lungs: Positive: Decreased Breath Sounds, Wheezes Neuro: Positive: Grossly Intact Abdomen: Positive: Soft, Active Bowel Sounds Skin: Positive: Clear Extremities: Absent: edema
--- NOTE | 2016-07-25 18:07 | Progress Note ---
Assessment and Plan -COPD exacerbation. Taper IV solu-medrol, continue Duoneb -Acute respiratory failure Balloon dilators with supplemental oxygen -Hypertension. Controlled -DVT prophylaxis with Lovenox. Subjective Date of service: 07/25/16 Principal diagnosis: COPD exercebation Interval history: Still haveing shortness of breath. No more chest pain. For echo and stress test today Objective - Constitutional Vitals: Vital Signs - 12hr 07/25/16 07/25/16 07/25/16 08:52 09:00 10:00 Temperature Pulse Rate 65 76 Pulse Rate [ Anterior Bilateral Throughout] Pulse Rate [ Left Radial] Respiratory 24 Rate Respiratory Rate [Anterior Bilateral Throughout] Blood Pressure 168/93 Blood Pressure [Left Arm] O2 Sat by Pulse 95 Oximetry 07/25/16 07/25/16 07/25/16 11:05 11:06 11:07 Temperature Pulse Rate 79 92 H 80 Pulse Rate [ Anterior Bilateral Throughout] Pulse Rate [ Left Radial] Respiratory Rate Respiratory Rate [Anterior Bilateral Throughout] Blood Pressure 167/78 152/76 153/77 Blood Pressure [Left Arm] O2 Sat by Pulse Oximetry 07/25/16 07/25/16 07/25/16 11:08 11:09 12:45 Temperature 97.8 F Pulse Rate 77 76 Pulse Rate [ Anterior Bilateral Throughout] Pulse Rate [ 82 Left Radial] Respiratory 22 Rate Respiratory Rate [Anterior Bilateral Throughout] Blood Pressure 160/71 145/71 Blood Pressure 156/95 [Left Arm] O2 Sat by Pulse 94 Oximetry 07/25/16 07/25/16 07/25/16 14:13 14:16 14:30 Temperature Pulse Rate 81 Pulse Rate [ 72 92 H Anterior Bilateral Throughout] Pulse Rate [ Left Radial] Respiratory Rate Respiratory 20 20 Rate [Anterior Bilateral Throughout] Blood Pressure Blood Pressure [Left Arm] O2 Sat by Pulse Oximetry General appearance: Present: no acute distress, well-nourished - EENT Eyes: PERRL, EOM intact - Neck Neck: supple, normal ROM - Respiratory Respiratory effort: normal Respiratory: bilateral: CTA - Cardiovascular Rhythm: regular Heart Sounds: Present: S1 & S2. Absent: gallop, rub Extremities: pulses intact, No edema, Full ROM - Gastrointestinal General gastrointestinal: Present: soft, non-tender, non-distended, normal bowel sounds - Integumentary Integumentary: clear, warm, dry - Musculoskeletal Musculoskeletal: 1, strength equal bilaterally - Neurologic Neurologic: moves all extremities - Psychiatric Psychiatric: memory intact, appropriate mood/affect, intact judgment & insight - Labs CBC & Chem 7: 07/24/16 07:37 07/24/16 07:37
[2016-07-26] MEDS: NACL 0.9% 1000 ML 1,000 ML IV SCH (06:26)
--- NOTE | 2016-07-26 06:50 | Treadmill Report ---
THALLIUM STRESS TEST LEFT VENTRICLE: Left ventricular chamber size is within normal limits. Perfusion study demonstrates homogeneous uptake of the tracer in all segments, no significant defects identified. Gated analysis demonstrates normal left ventricular systolic function, ejection fraction 75%. CONCLUSION: Normal myocardial perfusion study. JOB# [id number] CA/NTS
[2016-07-26] MEDS: DUONEB 0.5 MG-3 MG/3 ML SOLN IH SCH ×2 (07:50→13:41)
[2016-07-26] MEDS: LEVAQUIN 750MG/150ML 750 MG/150 ML BAG IV SCH (08:20)
[2016-07-26] MEDS: NORCO 5/325 PO PRN ×2 (08:20→13:51)
[2016-07-26 08:22] VITALS: BP 163/75
[2016-07-26] MEDS: NORVASC PO SCH (09:15)
--- NOTE | 2016-07-26 10:26 | Discharge Summary ---
Providers - Providers Date of Admission: 07/23/16 08:09 Date of discharge: 07/26/16 Attending physician: LANCE ROTHMAN Primary care physician: MELODIE ZAVALETA Hospitalization Condition: Stable Hospital course: Discharge diagnosis: -COPD exacerbation. Taper IV solu-medrol, continue Duoneb -Acute respiratory failure Balloon dilators with supplemental oxygen -Hypertension. Controlled Atypical Chest pain, - stress test negative, likely due to GERD Disposition: DISCHARGED TO HOME OR SELFCARE Time spent for discharge: 32 minutes Core Measure Documentation - Palliative Care Palliative Care/ Comfort Measures: Not Applicable - Core Measures Any of the following diagnoses?: none Exam - Physical Exam Narrative exam: GENERAL: well-developed and well-nourished lying on bed appeared to be in no discomfort. HEENT: Normocephalic. Atraumatic. No conjunctival congestion or icterus. Patient has moist mucous membranes. NECK: Supple. Trachea midline. CHEST/LUNGS: Clear to auscultated bilaterally, breathing nonlabored. No wheezes crackles or rhonchi. HEART/CARDIOVASCULAR: Regular in rate and rhythm. S1 and S2 positive. ABDOMEN: Abdomen is soft, nontender. Patient has normal bowel sounds. SKIN: There is no rash. Warm and dry. NEURO: No focal motor deficit. Follows command. MUSCULOSKELETAL: No joint effusion or tenderness. EXTRIMITY: No edema, no cyanosis or clubbing. PSYCH: Cooperative. - Constitutional Vitals: Temp Pulse Resp BP Pulse Ox 97.5 F L 88 22 163/75 98 07/26/16 08:20 07/26/16 09:15 07/26/16 09:50 07/26/16 09:15 07/26/16 09:50 Plan Activity: advance as tolerated Weight Bearing Status: Weight Bear as Tolerated Diet: low fat, low salt Follow up with: PRIMARY CARE, [Referring] - 3-5 Days Prescriptions: AtorvaSTATin [Lipitor] 20 mg PO QHS #30 tablet amLODIPine [Norvasc] 10 mg PO QDAY #30 tablet Budesoni/Formotero 160-4.5(Nf) [Symbicort 160-4.5 (Nf)] 2 puff IH BID 30 Days Hydrochlorothiazide [HCTZ] 25 mg PO QDAY #30 tablet predniSONE [Deltasone] 50 mg PO QDAY #7 tab Ipratropium/Albuterol Sulfate [Duoneb 0.5 mg-3 mg/3 ml Soln] 1 ampul IH TIDRT # 30 ampul.neb
[2016-07-26] MEDS ORDERED: NORVASC PO SCH (10:29)
[2016-07-26] MEDS ORDERED: NORVASC PO ONE (11:00)
[2016-07-26] MEDS ORDERED: HCTZ PO SCH (11:00)
--- NOTE | 2016-07-26 17:20 | Progress Note ---
Assessment and Plan Chest pain normal stress thallium this admission Elevated d-dimer - V/Q scan low probability for PE Hx of COPD Plan: Conservative cardiac management. Subjective Date of service: 07/26/16 Principal diagnosis: COPD exercebation Interval history: Patient denies chest pain. For planned discharge home today. Objective Vital Signs Temp Pulse Pulse Pulse Resp Resp BP 07/26/16 13:50 88 163/75 07/26/16 09:50 22 07/26/16 09:15 88 163/75 07/26/16 08:20 97.5 F L 66 18 07/26/16 08:07 78 16 07/26/16 08:00 84 07/26/16 07:52 76 16 07/26/16 04:45 98.6 F 66 20 07/26/16 01:46 98.7 F 83 18 07/25/16 21:16 97.9 F 90 20 07/25/16 20:25 22 07/25/16 20:15 84 07/25/16 19:35 72 17 07/25/16 19:28 66 17 07/25/16 17:35 97.8 F 72 20 BP BP Pulse Ox 07/26/16 13:50 07/26/16 09:50 98 07/26/16 09:15 07/26/16 08:20 163/75 96 07/26/16 08:07 07/26/16 08:00 07/26/16 07:52 07/26/16 04:45 129/65 93 07/26/16 01:46 143/75 91 07/25/16 21:16 139/75 92 07/25/16 20:25 94 07/25/16 20:15 07/25/16 19:35 07/25/16 19:28 07/25/16 17:35 136/78 - Physical Examination General: No Apparent Distress HEENT: Positive: PERRL Neck: Positive: neck supple Cardiac: Positive: Reg Rate and Rhythm Lungs: Positive: Decreased Breath Sounds Neuro: Positive: Grossly Intact Extremities: Absent: edema
[2016-07-27] MEDS ORDERED: NORVASC PO SCH (10:00)
[2016-07-27] MEDS ORDERED: LEVAQUIN PO SCH (10:00)
== END 2016-07-26 16:18 | disposition home or self-care (01) | DRG 189 ==
LOC: ED 02:50 → 4A 08:09
PROVIDERS: ADMIT Internal Medicine; ATTEND Internal Medicine
PROC: 4A033R1 Measurement of Arterial Saturation, Peripheral, Percutaneous Approach (ICD-10-PCS; principal; 2016-07-23)
PROC: 3E0234Z Introduction of Serum, Toxoid and Vaccine into Muscle, Percutaneous Approach (ICD-10-PCS; 2016-07-23)
DX: J96.00 Acute respiratory failure, unspecified whether with hypoxia or hypercapnia (principal); J44.1 Chronic obstructive pulmonary disease with (acute) exacerbation; K21.9 Gastro-esophageal reflux disease without esophagitis; I10 Essential (primary) hypertension; E03.9 Hypothyroidism, unspecified; Z88.0 Allergy status to penicillin; Z88.8 Allergy status to other drugs, medicaments and biological substances; Z90.710 Acquired absence of both cervix and uterus; Z87.891 Personal history of nicotine dependence
CPT/HCPCS: 36415; 71020; 78452; 78582; 80053; 81001; 82140; 82803; 84484; 85025; 85379; 85610; 87040; 90732; 93005; 93010; 93017; 94640; 96365; 96375; A9270-GY; A9502; A9540; A9558; J1650; J1956; J2785; J2930; J3475; J7030